=== PATIENT | male | born 1975 | race Caucasian/White ===

== ENCOUNTER → 2017-08-05 | Outpatient (CLI) | payer BC, OTHER | LOC: M WUC 14:55 | DX: M54.31 Sciatica, right side (principal) | CPT/HCPCS: 72110 ==

== ENCOUNTER → 2017-11-07 | Outpatient (CLI) | payer OTHER, BC ==
[2017-11-07 16:33] LABS: PLATELET COUNT, AUTOMATED 284 10^3/uL (150-450)
[2017-11-07 16:48] LABS: INR 0.94; PROTHROMBIN TIME 12.7 SECONDS (12.4-14.5)
[2017-11-07 16:49] LABS: PARTIAL THROMBOPLASTIN TIME 36.1 SECONDS (26.8-37.9)
== END ==
LOC: M WUC 11:20
DX: M48.061 Spinal stenosis, lumbar region without neurogenic claudication (principal); M51.36 Other intervertebral disc degeneration, lumbar region

== ENCOUNTER 2018-04-17 12:47 | Day surgery (SDC) | payer OTHER, BC ==
[~2018-04-17 12:47] MED LIST: CelecoXIB (CeleBREX) 100 MG CAP PO
[2018-04-17] MEDS: LR 1,000 ML IV ×2 (13:30→21:00)
[2018-04-17] MEDS: CelecoXIB 400 MG CAP PO (15:49)
[2018-04-17] MEDS: PERCOCET 5MG/325MG TAB PO (15:49)
[2018-04-17] MEDS: PREGABALIN 75 MG CAP(LYRICA) PO ×2 (15:49→23:20)
[2018-04-17] MEDS ORDERED: ROCURONIUM BROMIDE 50 MG/5 ML VIAL As Ordered ×2 (17:32→19:29)
[2018-04-17] MEDS ORDERED: PROPOFOL 200 MG/20 ML VIAL As Ordered (17:32)
[2018-04-17] MEDS ORDERED: dexameTHASONE 4 MG/ML 1ML VIAL (J1100) As Ordered (17:32)
[2018-04-17] MEDS ORDERED: LIDOCAINE 2% INJ 100 MG/5 ML SDV (FOR ANES.) As Ordered (17:33)
[2018-04-17] MEDS ORDERED: fentaNYL 100 MCG/2 ML INJECTION (J3010) As Ordered ×2 (17:33→20:11)
[2018-04-17] MEDS ORDERED: MIDAZOLAM INJ 2 MG/2 ML VIAL (J2250) As Ordered (17:33)
[2018-04-17] MEDS ORDERED: ONDANSETRON 4MG/2ML VIAL (J2405) As Ordered (17:39)
[2018-04-17] MEDS ORDERED: SUGAMMADEX SODIUM 500 MG/5 ML VIAL (BRIDION) As Ordered (17:40)
[2018-04-17] MEDS ORDERED: ONDANSETRON 4MG/2ML VIAL (J2405) IV (21:00)
[2018-04-17] MEDS ORDERED: PERCOCET 5MG/325MG TAB PO ×3 (21:00→21:30)
[2018-04-17] MEDS ORDERED: MEPERIDINE INJ 25 MG/ML VIAL (J2175) IV (21:00)
[2018-04-17] MEDS ORDERED: METOCLOPRAMIDE INJ 10MG/2ML VIAL (J2765) IV (21:00)
[2018-04-17] MEDS ORDERED: fentaNYL 100 MCG/2 ML INJECTION (J3010) IV (21:00)
[2018-04-17] MEDS: BUPIVACAINE/EPIN 0.25% 30 ML VIAL As Ordered (21:07)
[2018-04-17] MEDS: BUPIVACAINE LIPOSOME/PF 1.3% 20ML VIAL (13.3MG/ML)(EXPAREL)(C9290 PER1MG) As Ordered (21:12)
[2018-04-17] MEDS: BUPIVACAINE HCL 0.5% 10 ML VIAL As Ordered (21:12)
[2018-04-17] MEDS: BACITRACIN OINT 30GM As Ordered (21:13)
[2018-04-17] MEDS: BACITRACIN PWD 50,000 UNITS VIAL As Ordered ×2 (21:13)
[2018-04-17] MEDS: THROMBIN SOLN 20,000 UNITS KIT As Ordered (21:13)
[2018-04-17] MEDS ORDERED: PROMETHAZINE INJ 25 MG/ML VIAL (J2550) IV (21:30)
[2018-04-17] MEDS ORDERED: CYCLOBENZAPRINE 10 MG TAB PO (21:30)
[2018-04-17] MEDS ORDERED: HYDROMORPHONE HCL 0.5 MG/ 0.5 ML SYRINGE (J1170 PER 1) IV ×2 (21:30)
[2018-04-17] MEDS: D5W/LR 1,000 ML IV (23:11)
[2018-04-18] MEDS: ACETAMINOPHEN 500 MG TAB PO (03:18)
[2018-04-18] MEDS: PREGABALIN 75 MG CAP(LYRICA) PO (08:49)
[2018-04-18] MEDS: CelecoXIB (CeleBREX) 100 MG CAP PO (08:50)
[2018-04-18] MEDS ORDERED: METAMUCIL (PSYLLIUM) PACKET PO (09:00)
== END 2018-04-18 09:40 | disposition home or self-care (01) ==
LOC: M SDC 12:47 → M MS5PR 22:10
DX: M51.26 Other intervertebral disc displacement, lumbar region (principal); M54.16 Radiculopathy, lumbar region; F41.9 Anxiety disorder, unspecified; F32.9 Major depressive disorder, single episode, unspecified; R06.83 Snoring; E66.9 Obesity, unspecified; Z68.37 Body mass index [BMI] 37.0-37.9, adult; Z72.0 Tobacco use; Z88.0 Allergy status to penicillin
CPT/HCPCS: 63030

== ENCOUNTER → 2020-12-04 | Outpatient (CLI) | payer OTHER ==
[~2020-12-04] MED LIST changes: +APAP500T10 PO; -CelecoXIB (CeleBREX) 100 MG CAP PO; +IBUP80TA PO; +LYRI150C PO; +NEXI20CA PO; +SERT-138 PO
--- NOTE | 2020-12-05 08:16 | REP ---
INDICATION: LUMBAR DDD. Repeat dictation. Preliminary report is provided at the time of the exam by alberto FERNANDEZ. COMPARISON: Comparison study is from December 16, 2017.. TECHNIQUE: Sagittal and axial T1 and T2-weighted scans are acquired in the usual fashion with and without fat saturation. Sequences include spin echo, turbo spin-echo, and STIR imaging sequences. FINDINGS: There is some straightening of the normal lumbar lordosis. Lumbar vertebral body heights are preserved. There is no evidence of spondylolysis or spondylolisthesis. The tip of the conus medullaris is normal in position and appearance at the T12-L1 level. There is degenerative disc disease at L2-3, L4-5, and L5-S1. There are associated marrow reactive changes on either side of the L2-3 and the L5-S1 disc similar to December 16, 2017. No extra vertebral abnormality is observed. Axial and sagittal images taken at the L1-2 disc level today show no evidence of disc protrusion, central canal stenosis, or foraminal narrowing. At L2-3, there is degenerative disc narrowing and diffuse moderate disc bulging is seen effacing the ventral subarachnoid space. Canal size is borderline. Foraminal narrowing is seen. These findings are unchanged from the 2018 prior study. At L3-L4, there is minimal diffuse disc bulging. The disc is preserved in height. Minimal facet hypertrophy is present bilaterally at L3-4. No change from comparison study. At L4-5, there is a moderate size right paracentral focal disc protrusion which compresses the right ventral lateral margin of the thecal sac and the exiting right 5th lumbar root. There is bilateral lateral recess narrowing due to disc bulging. Facet hypertrophy is present bilaterally. No neural foraminal narrowing is seen. The disc protrusion at L4-5 is larger than it was on the December 16, 2017 study. Facet hypertrophy and ligamentum flavum hypertrophy are unchanged. At L5-S1, there is a small central focal disc protrusion which extends cephalad for 2-3 mm. This effaces the ventral epidural fat but does not appear to compress the thecal sac. No neural foraminal narrowing is seen. There is bulging of the remainder of the disc margin with posterior osteophytic ridging. Facet hypertrophy is present bilaterally at L5-S1. These findings are unchanged from the prior study. IMPRESSION: The dominant abnormality is a moderate sized right paracentral focal disc protrusion at L4-5 with thecal sac compression and right 5th lumbar root compression. Degenerative spondylosis changes are noted. The disc protrusion is larger. The spondylosis changes are unchanged when compared with the 2018 prior study. <Electronically signed by Evelio Soliz > 12/05/20 [id number]
== END ==
LOC: M PLAIMG 15:22
PROVIDERS: ATTEND Physician Assistant
DX: M51.36 Other intervertebral disc degeneration, lumbar region (principal); M51.26 Other intervertebral disc displacement, lumbar region; M51.27 Other intervertebral disc displacement, lumbosacral region; M47.816 Spondylosis without myelopathy or radiculopathy, lumbar region

== ENCOUNTER → 2021-02-04 | Outpatient (CLI) | payer OTHER ==
[2021-02-04 13:07] LABS: PLATELET COUNT, AUTOMATED 223 10^3/uL (150-450)
[2021-02-04 13:25] LABS: COLLAGEN EPINEPHRINE > 300.0 SECONDS (74-162)
[2021-02-04 13:34] LABS: INR 0.97; PARTIAL THROMBOPLASTIN TIME 37.7 SECONDS (25.9-37.0); PROTHROMBIN TIME 13.3 SECONDS (12.7-14.5)
[2021-02-04 13:48] LABS: COLLAGEN ADP 169 SECONDS (56-103)
== END ==
LOC: M PLALAB 10:29
PROVIDERS: ATTEND Physical Medicine & Rehabilitation
DX: M51.36 Other intervertebral disc degeneration, lumbar region (principal)

== ENCOUNTER → 2021-02-06 | Outpatient (CLI) | payer OTHER ==
[2021-02-06 12:58] LABS: COLLAGEN EPINEPHRINE 181 SECONDS (74-162)
[2021-02-06 13:18] LABS: COLLAGEN ADP 145 SECONDS (56-103)
== END ==
LOC: M PLALAB 10:10
PROVIDERS: ATTEND Physical Medicine & Rehabilitation
DX: Z01.812 Encounter for preprocedural laboratory examination (principal)

== ENCOUNTER → 2021-02-09 | Outpatient (CLI) | payer OTHER ==
[2021-02-09 10:03] LABS: COLLAGEN EPINEPHRINE 152 SECONDS (74-162)
== END ==
LOC: M LAB 07:48
PROVIDERS: ATTEND Physical Medicine & Rehabilitation
DX: Z01.812 Encounter for preprocedural laboratory examination (principal)